=== PATIENT | female | born 1990 | race Caucasian/White ===

== ENCOUNTER 2016-04-11 17:17 | Observation (INO) | payer SELFPAY ==
[~2016-04-11] VITALS: Ht 160 cm; Wt 56.7 kg
[~2016-04-11 17:17] MED LIST: HYDR-971 PO; METR500T PO; MUPI15CR TP; NAPR500T PO; NAPR500T8 PO; ONDA4TAB10 PO; PNV1TABL25 PO; PROG200C7 PO
[2016-04-11] MEDS ORDERED: IV NORMAL SALINE 1000ML BAG 1,000 ML IV SCH ×2 (17:44→18:46)
[2016-04-11 18:17] LABS: BASO % 0 % (0-3); EOS % 1 % (0-3); HEMATOCRIT 39.2 % (36.0-47.0); HEMOGLOBIN 12.8 g/dL (12.0-15.5); LYMPH # 2.6 x10^3/uL (1.0-4.8); LYMPH % 16 % (24-48); MEAN CORPUSCULAR HEMOGLOBIN 29 pg (25-35); MEAN CORPUSCULAR HGB CONC 33 g/dL (31-37); MEAN CORPUSCULAR VOLUME 89 fL (79-100); MONO % 4 % (0-9); NEUT % 78 % (31-73); PLATELET COUNT 288 x10^3/uL (140-400); RED BLOOD COUNT 4.39 x10^6/uL (3.50-5.40); RED CELL DISTRIBUTION WIDTH 14.4 % (11.5-14.5); WHITE BLOOD COUNT 15.6 x10^3/uL (4.0-11.0)
--- NOTE | 2016-04-11 18:46 | PHYS DOC ---
Past Medical History Past Medical History: Other Additional Past Medical Histor: CERVICAL CANCER Past Surgical History: Other Additional Past Surgical Histo: X1 Alcohol Use: Occasionally Drug Use: None Adult General Chief Complaint Chief Complaint: VAGINAL BLEEDING HPI HPI Patient is a 26 year old female who presents with vaginal bleeding. Patient states her symptoms started earlier today. The patient states that she may be . The patient's last menstrual period was reported to be "February 2016. " Patient reports that she took 2 tests last week, the first test being negative and the second test being positive. Patient is A1. Patient started having worsening lower abdominal and pelvic cramping with heavy bleeding. The patient states that she may have miscarried. During triage, nursing staff reported that the patient has what appears to be a fetus on the bed. Patient rates her pain as 8 out of 10. Review of Systems Review of Systems Constitutional: Denies fever or chills [] Eyes: Denies change in visual acuity, redness, or eye pain [] HENT: Denies nasal congestion or sore throat [] Respiratory: Denies cough or shortness of breath [] Cardiovascular: No additional information not addressed in HPI [] GI: Denies abdominal pain, nausea, vomiting, bloody stools or diarrhea [] : Vaginal bleeding, pelvic cramping [] Musculoskeletal: Denies back pain or joint pain [] Integument: Denies rash or skin lesions [] Neurologic: Denies headache, focal weakness or sensory changes [] Current Medications Current Medications Current Medications Medications (Trade) Dose Ordered Sig/Oscar Start Time Stop Time Status Last Admin Dose Admin Sodium Chloride (Iv Sodium Chloride 0.9% 1000ml Bag) 1,000 ml @ 1,000 mls/hr Q1H 04/11/16 17:44 04/11/16 18:43 DC 04/11/16 18:25 1,000 MLS/HR Allergies Allergies Allergies Coded Allergies Type Severity Reaction Last Updated Verified No Known Drug Allergies 08/28/14 No Physical Exam Physical Exam Constitutional: Alert, afebrile, appears in moderate discomfort and visibly upset. [] HENT: Normocephalic, atraumatic, bilateral external ears normal, oropharynx moist, no oral exudates, nose normal. [] Eyes: PERRLA, EOMI, conjunctiva normal, no discharge. [] Neck: Normal range of motion, no tenderness, supple, no stridor. [] Cardiovascular:Heart rate regular rhythm, no murmur [] Lungs & Thorax: Bilateral breath sounds clear to auscultation [] Abdomen: Bowel sounds normal, soft, no tenderness, no masses, no pulsatile masses. : Fetus appears approximately 10-12 weeks estimated gestational age on bed with umbilical cord intact, no signs of life, no active hemorrhaging from vaginal canal [] Skin: Warm, dry, no erythema, no rash. [] Back: No tenderness, no CVA tenderness. [] Extremities: No tenderness, no cyanosis, no clubbing, ROM intact, no edema. [] Neurologic: Alert and oriented X 3, normal motor function, normal sensory function, no focal deficits noted. [] Current Patient Data Vital Signs Vital Signs Date Time Temp Pulse Resp B/P Pulse Ox O2 Delivery O2 Flow Rate FiO2 04/11/16 18:24 93 20 110/70 100 Room Air 04/11/16 17:35 97.9 97.9 Lab Values Laboratory Tests Test 04/11/16 18:00 White Blood Count 15.6x10^3/uL (4.0-11.0) H Red Blood Count 4.39x10^6/uL (3.50-5.40) Hemoglobin 12.8g/dL (12.0-15.5) Hematocrit 39.2% (36.0-47.0) Mean Corpuscular Volume 89fL (79-100) Mean Corpuscular Hemoglobin 29pg (25-35) Mean Corpuscular Hemoglobin Concent 33g/dL (31-37) Red Cell Distribution Width 14.4% (11.5-14.5) Platelet Count 288x10^3/uL (140-400) Neutrophils (%) (Auto) 78% (31-73) H Lymphocytes (%) (Auto) 16% (24-48) L Monocytes (%) (Auto) 4% (0-9) Eosinophils (%) (Auto) 1% (0-3) Basophils (%) (Auto) 0% (0-3) Neutrophils # (Auto) 12.2x10^3uL (1.8-7.7) H Lymphocytes # (Auto) 2.6x10^3/uL (1.0-4.8) Monocytes # (Auto) 0.6x10^3/uL (0.0-1.1) Eosinophils # (Auto) 0.2x10^3/uL (0.0-0.7) Basophils # (Auto) 0.0x10^3/uL (0.0-0.2) Laboratory Tests 04/11/16 18:00 EKG EKG Not performed [] Radiology/Procedures Radiology/Procedures Not performed [] Course & Med Decision Making Course & Med Decision Making Pertinent Labs and Imaging studies reviewed. (See chart for details) The fetus was placed in a specimen tract and sent to lab. I attempted delivery of the placenta in the emergency department. This was attempted by clamping the umbilical cord in placing gentle but persistent traction. Upon placing the second clamp, the umbilical cord ruptured and retracted back into the vagina. This was unable to be identified after inspection. I consult to Dr. Christy who evaluated the patient in the emergency department and attempted manual delivery of the placenta. This was discontinued due to patient discomfort. The patient was admitted under observation care to Dr. Christy with expected dilatation and curettage to be performed later today. [] Dragon Disclaimer Dragon Disclaimer This electronic medical record was generated, in whole or in part, using a voice recognition dictation system. Departure Departure Impression: Primary Impression: Retained products of conception following Disposition: ADMITTED INPATIENT Admitting Physician: Other Condition: STABLE Referrals: NO PCP (PCP) KEITH CORBETT MD Apr 11, 2016 18:46
[2016-04-11 18:48] LABS: CALCIUM 9.4 mg/dL (8.5-10.1); CREATININE 0.6 mg/dL (0.6-1.0); GFR 122.8; POTASSIUM 3.2 mmol/L (3.5-5.1)
[2016-04-11 18:49] LABS: ALBUMIN 3.8 g/dL (3.4-5.0); ALBUMIN/GLOBULIN RATIO 0.9 (1.0-1.7); MAGNESIUM 1.9 mg/dL (1.8-2.4); TOTAL BILIRUBIN 0.3 mg/dL (0.2-1.0); TOTAL PROTEIN 7.9 g/dL (6.4-8.2)
[2016-04-11] MEDS ORDERED: ONDANSETRON PF 4 MG/2 ML VIAL. IV PRN ×3 (19:00→20:45)
[2016-04-11] MEDS ORDERED: FENTANYL PF 100 MCG/2 ML VIAL. IV PRN ×5 (19:00→20:45)
[2016-04-11] MEDS ORDERED: GLYCOPYRROLATE 1 MG/5 ML VIAL. ONE (19:25)
[2016-04-11] MEDS ORDERED: SEVOFLURANE 31 TO 60 MINUTES. IH ONE (19:25)
[2016-04-11] MEDS ORDERED: FENTANYL PF 100 MCG/2 ML VIAL. ONE (19:25)
[2016-04-11] MEDS ORDERED: MIDAZOLAM HCL 2 MG/2 ML VIAL. ONE (19:25)
[2016-04-11] MEDS ORDERED: KETOROLAC 60 MG/2 ML SYRINGE FOR OR. ONE (19:26)
[2016-04-11] MEDS ORDERED: DEXAMETHASONE SOD PHOS 20 MG/5 ML VIAL. ONE (19:26)
[2016-04-11] MEDS ORDERED: NEOSTIGMINE METHYLSULFATE 5 MG/5 ML SYRINGE. ONE (19:26)
[2016-04-11] MEDS ORDERED: PROPOFOL 20 ML IV ONE (19:26)
[2016-04-11] MEDS ORDERED: SUCCINYLCHOLINE 200 MG/10 ML VIAL. ONE (19:26)
[2016-04-11] MEDS ORDERED: LIDOCAINE 2% 100 MG/5 ML DISP.SYRIN. ONE (19:26)
[2016-04-11] MEDS ORDERED: ONDANSETRON PF 4 MG/2 ML VIAL. ONE (19:26)
[2016-04-11] MEDS ORDERED: CEFOXITIN 1GM IVPB FOR OMNI 50 ML IV SCH ×2 (19:45→21:00)
[2016-04-11] MEDS ORDERED: IV DEXTROSE 5%-LACT RINGERS 1,000 ML IV ONE (19:45)
[2016-04-11] MEDS ORDERED: CEFAZOLIN 1GM IVPB FOR OMNI 50 ML IV ONE (19:48)
[2016-04-11] MEDS ORDERED: MISOPROSTOL 200 MCG TABLET ONE (19:51)
[2016-04-11] MEDS ORDERED: OXYTOCIN 10 UNIT/ML VIAL. ONE ×3 (19:51→21:11)
[2016-04-11] MEDS ORDERED: IV RINGERS,LACTATED 1000ML 1,000 ML IV SCH ×2 (20:30→20:45)
[2016-04-11] MEDS ORDERED: OXYCODONE/APAP 5/325 TABLET. PO PRN ×2 (20:30→20:45)
[2016-04-11] MEDS ORDERED: LIDOCAINE 1% 1 ML SYRINGE. ID PRN ×2 (20:30→20:45)
[2016-04-11] MEDS ORDERED: HYDROMORPHONE 2 MG/ML VIAL. IV PRN ×2 (20:30→20:45)
[2016-04-11] MEDS ORDERED: PROCHLORPERAZINE 10 MG/2 ML VIAL. IV PRN ×2 (20:30→20:45)
[2016-04-11] MEDS ORDERED: MORPHINE SULFATE 2 MG/ML DISP.SYRIN. IV PRN ×2 (20:30→20:45)
[2016-04-11] MEDS ORDERED: IV DEXTROSE 5%-LACT RINGERS 1,000 ML IV SCH (20:45)
[2016-04-11 21:30] VITALS: BP 100/55
[2016-04-11] MEDS ORDERED: OXYTOCIN 30 UNIT/500 ML PREMIX 500 ML IV ONE (21:30)
[2016-04-11 22:00] VITALS: BP 97/55
--- NOTE | 2016-04-11 22:46 | HP ---
ADMIT DATE: 04/11/2016 HISTORY OF PRESENT ILLNESS: This patient is a 26-year-old white female who is a 4, para 2, history of 1 , unknown last menstrual period and the patient comes in to the Emergency Room with a history of having stomach cramps and vaginal bleeding and while she was in the ER, she expelled the fetus which is 4-1/2 to 5 months size and the placental cord got torn up and has retained placenta and also bleeding and passing clots and patient is in lot of acute distress because of the name pelvic pain. ALLERGIES: None known. PREVIOUS HISTORY REVIEW: She has had a LEEP procedure on the cervix. OBJECTIVE: VITAL SIGNS: Stable. HEAD, EYES, NOSE, THROAT: Within normal limits. LUNGS: Clear. HEART: Sounds regular sinus rhythm. ABDOMEN: Feels soft but quiet tender in the pelvic area. PELVIC: Shows marked bleeding and passing clots and the cervical os is closed and uterus is boggy with placental tissues. The expelled tissues were sent to labs. EXTREMITIES: No edema of feet. DIAGNOSES: Retained placenta, 4, para 2, history of 1 , and a history of LEEP procedure on the cervix. PLAN: Admission, IV fluids D and C under general anesthesia. This has been explained to the patient as well as the patient's mother and they will proceed with the surgery and she is willing for the operation at the present time. KB CARLSON MD DR: PERCY/prabha JOB#: [id number] / [id number]
[2016-04-11 23:00] VITALS: BP 86/47
--- NOTE | 2016-04-12 03:08 | OP ---
DATE OF SURGERY: PREOPERATIVE DIAGNOSIS: Retained placenta. POSTOPERATIVE DIAGNOSIS: Retained placenta. OPERATION PERFORMED: D and C, suction curettage. DESCRIPTION OF PROCEDURE: The patient was taken to the operating room. Under general anesthesia, she was placed in the dorsal lithotomy position. Perineum was prepped and draped in the usual manner. Bladder was catheterized and weighted speculum inserted in the posterior vaginal wall. Anterior lip of the cervix held with a tenaculum and cervix was already dilated. A suction 8 suction tip cannula was used to suction the uterus. All the curettings obtained are subjected for pathological examination. At the end of suction curettage, medium-sized curette was used to curet the endometrial cavity. She did receive 20 units of Pitocin IV bottle of fluid during the time of the D and C. At the end of the curettage, speculum and tenaculum was removed. The patient was sent to the recovery room in good condition. No complications encountered at the time of the procedure. Estimated blood loss about 75 mL. Vital signs being stable. KB CARLSON MD DR: PERCY/prabha JOB#: [id number] / [id number]
[2016-04-12] MEDS: ACETAMINOPHEN 325 MG TABLET. PO PRN ×2 (05:28→09:47)
[2016-04-12 05:30] VITALS: BP 117/67
[2016-04-12 05:35] VITALS: BP 95/48
--- NOTE | 2016-04-12 10:33 | PDOC ---
SUBJECTIVE Subjective Patient feeling better OBJECTIVE Objective Abdomen soft Not much bleeding Vital Signs Vital Signs Date Time Temp Pulse Resp B/P Pulse Ox O2 Delivery O2 Flow Rate FiO2 04/12/16 05:35 98.1 98 18 95/48 98.1 04/11/16 23:00 98.5 85 16 86/47 98.5 04/11/16 22:00 98.2 80 16 97/55 98.2 04/11/16 21:30 97.9 70 18 100/55 100 Room Air 97.9 04/11/16 21:30 18 04/11/16 21:16 85 16 100/62 100 Room Air 04/11/16 21:01 91 16 93/49 100 Room Air 04/11/16 20:46 97 16 92/51 100 Simple Mask 10 04/11/16 20:40 Mask 10 04/11/16 20:31 98.4 102 16 93/45 100 Simple Mask 10 98.4 04/11/16 18:24 93 20 110/70 100 Room Air 04/11/16 18:00 95 20 112/75 100 Room Air 04/11/16 17:41 92 20 115/63 96 Room Air 04/11/16 17:35 97.9 94 24 118/56 99 Room Air 97.9 I & O Intake and Output 04/12/16 07:00 Intake Total 15 ml Balance 15 ml Intake Oral 15 ml PHYSICAL EXAM Physical Exam No fever Andomen soft Uterus firm ASSESSMENT/PLAN Assessment/Plan Patient will go home today Return to office in 2 weeks for checkup Problems: COMMENT Lab Laboratory Tests Test 04/11/16 18:00 White Blood Count 15.6x10^3/uL (4.0-11.0) Red Blood Count 4.39x10^6/uL (3.50-5.40) Hemoglobin 12.8g/dL (12.0-15.5) Hematocrit 39.2% (36.0-47.0) Mean Corpuscular Volume 89fL (79-100) Mean Corpuscular Hemoglobin 29pg (25-35) Mean Corpuscular Hemoglobin Concent 33g/dL (31-37) Red Cell Distribution Width 14.4% (11.5-14.5) Platelet Count 288x10^3/uL (140-400) Neutrophils (%) (Auto) 78% (31-73) Lymphocytes (%) (Auto) 16% (24-48) Monocytes (%) (Auto) 4% (0-9) Eosinophils (%) (Auto) 1% (0-3) Basophils (%) (Auto) 0% (0-3) Neutrophils # (Auto) 12.2x10^3uL (1.8-7.7) Lymphocytes # (Auto) 2.6x10^3/uL (1.0-4.8) Monocytes # (Auto) 0.6x10^3/uL (0.0-1.1) Eosinophils # (Auto) 0.2x10^3/uL (0.0-0.7) Basophils # (Auto) 0.0x10^3/uL (0.0-0.2) Sodium Level 137mmol/L (136-145) Potassium Level 3.2mmol/L (3.5-5.1) Chloride Level 101mmol/L (98-107) Carbon Dioxide Level 25mmol/L (21-32) Anion Gap 11 (6-14) Blood Urea Nitrogen 8mg/dL (7-20) Creatinine 0.6mg/dL (0.6-1.0) Estimated GFR (Cockcroft-Gault) 122.8 BUN/Creatinine Ratio 13 (6-20) Glucose Level 70mg/dL (70-99) Calcium Level 9.4mg/dL (8.5-10.1) Magnesium Level 1.9mg/dL (1.8-2.4) Total Bilirubin 0.3mg/dL (0.2-1.0) Aspartate Amino Transf (AST/SGOT) 13U/L (15-37) Alanine Aminotransferase (ALT/SGPT) 21U/L (14-59) Alkaline Phosphatase 79U/L (46-116) Total Protein 7.9g/dL (6.4-8.2) Albumin 3.8g/dL (3.4-5.0) Albumin/Globulin Ratio 0.9 (1.0-1.7) KB CARLSON MD Apr 12, 2016 10:33
[2016-04-12 11:45] VITALS: BP 99/49
--- NOTE | 2016-04-14 16:05 | PATHOLOGY ---
PATHOLOGY REPORT * * * * * * * * FINAL DIAGNOSIS: Products of conception: - 89 gram immature placenta of an estimated 16-18 weeks gestation with attached membranes and umbilical cord showing focal acute chorionitis, subamnionic histiocytes, and focal mild hydropic degenerative changes. - 116 gram fetus. (MAEVEM:; d/t: 04/14/16) REPORT ELECTRONICALLY SIGNED BY: Bharath Florian M.D. DATE/TIME: 04/14/2016 16:05 * * * * * * * * GROSS PATHOLOGY: The specimen is received in formalin labeled "Angel Cullen, fetus and products of conception". Received is a partial placenta weighing 89 grams and measuring 11.5 x 6.6 x 2.5 cm in greatest dimensions. The membranes are pink-sin and translucent in appearance. The site of membrane rupture is at the placental margin. The 3 vessel umbilical cord measures 7.2 cm in length by 0.6 cm in diameter and inserts centrally, 2.4 cm from the closest placental margin. The maternal surface is light enciso and slightly shaggy in appearance with a slight amount of adherent blood coagulum. Sectioning reveals light enciso cut surfaces with no grossly distinct nodules or lesions. The specimen is submitted representatively as follows: A1 membrane roll and umbilical cord A2 full-thickness placental cross-section. Also received within the specimen container is a 116 g fetus with attached moderately twisted umbilical cord. The fetus displays the following measurements: Head circumference: 10.4 cm [place]-rump: 13.8 cm [place]-heel: 19.7 cm Foot length: 2.2 cm Eye distance: 1.0 cm. The skin is light enciso to overall dusky light brown to dark brown in appearance. Both hands and feet are present displaying 10 fingers and 10 toes. The mouth and anus are probe patent. The fetus is determined to be a male. Gross photographs are taken. (CAA; 04/13/2016) INITIAL CPT CODE(S): A; 46461, 36760 Professional services performed by [facility] at [address] [address] Technical services performed by [facility] at [address] [place] [address], [address], [place] [address]. SPECIMEN(S) RECEIVED: A.Fetus ~ 12 weeks, POC-placenta CLINICAL HISTORY: Ab1, fetus/placenta passed in ER, LMP February 2016 PATIENT: ANGEL CULLEN /AGE: 1203/01/1990 (Age: 26) PATIENT #: [id number] ALT CASE #: [id number] SPECIMEN COLLECTION DATE: 04/12/2016 SPECIMEN RECEIVED DATE: 04/12/2016 [facility] - [address] [place] [address] - PHONE: [phone] * * * END OF REPORT * * *
--- NOTE | 2016-04-14 16:05 | PATHOLOGY ---
PATHOLOGY REPORT * * * * * * * * FINAL DIAGNOSIS: Uterine contents, suction D and C: - Segments of decidual tissue showing focal hemorrhage and acute inflammation. COMMENT: There are no chorionic villi identified. (JPM:; d/t: 04/14/16) REPORT ELECTRONICALLY SIGNED BY: Bharath Florian M.D. DATE/TIME: 04/14/2016 16:04 * * * * * * * * GROSS PATHOLOGY: The specimen is received in formalin, labeled "Angel Cullen and retained products of conception." Received is a 6.3 x 3.8 x 1.2 cm aggregate of pink-enciso, rubbery, membranous, and possible villous soft tissue fragments admixed with clotted blood. No parts are grossly identified. Analysis Manager sections are submitted in cassettes A1-A3. (TTL; 04/13/2016) INITIAL CPT CODE(S): A; 81006 Professional services [place] [address] Technical services performed by [facility] at [address] [place] [address]. SPECIMEN(S) RECEIVED: A.Retained products of conception (D and C) CLINICAL HISTORY: , Ab1, delivery of fetus and placenta in ER, retained placenta/POC, D and C PATIENT: ANGEL CULLEN /AGE: 1203/01/1990 (Age: 26) PATIENT #: [id number] ALT CASE #: [id number] SPECIMEN COLLECTION DATE: 04/12/2016 SPECIMEN RECEIVED DATE: 04/12/2016 [facility] - [address] [place] [address] - PHONE: [phone] * * * END OF REPORT * * *
== END 2016-04-12 12:27 | disposition home or self-care (01) ==
LOC: ER 17:17 → 3 NORTH 18:42 → ER 19:43
PROVIDERS: ADMIT Obstetrics & Gynecology; ATTEND Obstetrics & Gynecology
DX: O03.1 Delayed or excessive hemorrhage following incomplete spontaneous abortion (principal); Z85.41 Personal history of malignant neoplasm of cervix uteri
CPT/HCPCS: 36415; 59812; 80053; 83735; 85027; 86850; 86900; 86901; 88300; 88305; 96374; 96375; G0378; G0379; J0330; J0690; J0694; J1100; J1885; J2250; J2405; J2590; J2704; J3010; J7030; J7120; J2710; J3490

== ENCOUNTER 2020-07-23 08:19 | Emergency (ER) | payer SELFPAY ==
[~2020-07-23] VITALS: Ht 160 cm; Wt 84.1 kg
[~2020-07-23 08:19] MED LIST changes: +HYDR-3164 PO; -HYDR-971 PO; +NAPR-683 PO; -NAPR500T PO; +PROG200C15 PO; -PROG200C7 PO; +SILV20CR14 TP
[2020-07-23] MEDS ORDERED: METH4TAB2 PO (09:34)
[2020-07-23] MEDS ORDERED: BETA15OI6 TP (09:34)
[2020-07-23] MEDS ORDERED: COLL226C TP (09:34)
--- NOTE | 2020-07-23 09:39 | ED.ADGEN ---
Past Medical History Past Medical History: Other Additional Past Medical Histor: CERVICAL CANCER Past Surgical History: Other Additional Past Surgical Histo: X1, LEEP procedure, d&C, dental extractions Smoking Status: Current Every Day Smoker Additional Information: 03/07 ppd Alcohol Use: Occasionally Drug Use: None General Adult EDM: Chief Complaint: SKIN RASH/ABSCESS HPI: HPI: Patient is a 30-year-old female presents to the emergency room complaining of rash to bilateral hands. She states she had something similar 2 months ago and was placed on steroid cream and Vaseline which should help it go away. She states it came back last week and has progressively gotten worse. She states it is extremely itchy and painful. She states that her hands have been dry and cracking. She has had several small blisters. She had never had anything like this prior to couple of months ago. She denies any concern for sexually transmitted diseases such as syphilis. She denies any other friends or family members who have the same rash. Review of Systems: Review of Systems: Complete ROS is negative unless otherwise documented in HPI Allergies: Allergies: Allergies Coded Allergies Type Severity Reaction Last Updated Verified No Known Drug Allergies 07/23/20 No Physical Exam: PE: General: Awake, alert, NAD. Well Nourished, well hydrated. Cooperative HEENT: Atraumatic, EOMI, PERRL, airway patent, moist oral mucosa Neck: Supple, trachea midline Respiratory: CTA bilaterally, normal effort, no wheezing/crackles CV: RRR, no murmur, cap refill <2 GI: Soft, nondistended, nontender, no masses MSK: No obvious deformities Skin: Warm, dry. Bilateral hands: Severe dryness with rare blisters, scabbed over broken blisters, minimal fissures between fingers, erythema Neuro: A&O x3, speech NL, sensory and motor grossly intact, no focal deficits Psych: Normal affect, normal mood, not suicidal or homicidal Current Patient Data: Vital Signs: Vital Signs Date Time Temp Pulse Resp B/P (MAP) Pulse Ox O2 Delivery O2 Flow Rate FiO2 07/23/20 08:32 97.8 89 16 130/77 (94) 98 Room Air 97.8 EKG: EKG: [] Heart Score: C/O Chest Pain: N/A Risk Factors: Risk Factors: DM, Current or recent (<one month) smoker, HTN, HLP, family history of CAD, obesity. Risk Scores: Score 0 - 3: 2.5% MACE over next 6 weeks - Discharge Home Score 4 - 6: 20.3% MACE over next 6 weeks - Admit for Clinical Observation Score 7 - 10: 72.7% MACE over next 6 weeks - Early Invasive Strategies Radiology/Procedures: Radiology/Procedures: [] Course & Med Decision Making: Course & Med Decision Making Pertinent Labs and Imaging studies reviewed. (See chart for details) Patient is 30-year-old female who presents to the emergency room complaining of rash to bilateral hands. Patient appears to have a contact dermatitis or eczema. I discussed with the patient that she should change hand soaps, sanitizers, lotions as this may be causing her symptoms. We will place her on steroid cream and moisturizer. I have discussed with her that she should follow-up with her primary care physician to ensure that this does resolve. Patient does not have lesions that are consistent with syphilis. She does not want to be tested at this time. She denies any chance that she could be . Patient's test results and vitals while in the ED were fully reviewed and discussed with the patient. Patient is stable and at this time does not need admission to the hospital. We have discussed strict return precautions and the importance of following up with their Primary Care Physician. Patient stated understanding and was given an opportunity to ask any questions. Patient is in agreement with plan. Yeison Disclaimer: Yeison Disclaimer: This electronic medical record was generated, in whole or in part, using a voice recognition dictation system. Departure Departure Impression: Primary Impression: Contact dermatitis and eczema Disposition: HOME / SELF CARE / HOMELESS Condition: STABLE Referrals: NO PCP (PCP) Patient Instructions: Contact Dermatitis Additional Instructions: Apply steroid followed by Eucerin twice a day for 5 days. Take oral steroids as instructed Switch hand soaps, hand manager speech, hand lotions as these may be causing your rash. Scripts Betamethasone/Propylene Glyc (BETAMETHASONE DP AUG 0.05% OIN) 15 Gm Oint...g. 1 GM TP BID, #60 MISC Prov: DANN TELLO MD 07/23/20 Colloidal Oatmeal (Eucerin Eczema Relief) 226 Gm Cream..g. 1 MARY TP QID for 30 Days, #226 GM 0 Refills Prov: DANN TELLO MD 07/23/20 Methylprednisolone (MEDROL) 4 Mg Tab.ds.pk 1 PKG PO UD for inflammation, #1 PKG Prov: DANN TELLO MD 07/23/20 DANN TELLO MD July 23, 2020 09:39
[2020-07-23 09:57] VITALS: BP 120/58
== END 2020-07-23 09:57 | disposition home or self-care (01) ==
LOC: ER 08:19
DX: L25.9 Unspecified contact dermatitis, unspecified cause (principal); F17.200 Nicotine dependence, unspecified, uncomplicated
CPT/HCPCS: 99283